=== PATIENT | female | born 1965 | race African-American/Black ===

== ENCOUNTER 2018-04-16 10:00 | Emergency (ER) | payer OTHER ==
[2018-04-16 10:05] VITALS: BMI 34.0
--- NOTE | 2018-04-16 10:22 | PDOC ---
History of Present Illness - General Chief Complaint: Pain, Acute Stated Complaint: ABD PAIN Time Seen by Provider: 04/16/18 10:20 History Source: Patient Exam Limitations: No Limitations - History of Present Illness Initial Comments: 04/16/18 10:21 CHIEF COMPLAINT: Abdominal pain HISTORY OF PRESENT ILLNESS: This is a 53-year-old female with NIDDM, hypertension, VON on CPAP at night, and migraines who presents with about one week of intermittent abdominal pain and diarrhea. She reports that the pain is cramping in character, generalized (sometimes upper and sometimes lower), associated with mild nausea, and worse after eating. She reports that she has "instant" diarrhea after eating. She denies hematochezia. She denies fevers/ chills. She denies recent travel or sick contacts. Of note, she has been on Augmentin for a presumed upper respiratory infection for about 1 week. Smoking: On Chantix, has smoked for approximately 40 years, has now cut down to 3 cigarettes daily Surgical history: Lumpectomy age 39, left ankle surgery this year REVIEW OF SYSTEMS: GENERAL/CONSTITUTIONAL: No fever or chills. No weakness. No weight change. HEAD, EYES, EARS, NOSE AND THROAT: No change in vision. No ear pain or discharge. No sore throat. CARDIOVASCULAR: No chest pain or palpitations. RESPIRATORY: Two weeks of cough productive of yellow sputum, not improving with antibiotics. No wheezing or shortness of breath. GASTROINTESTINAL: See HPI. GENITOURINARY: No dysuria, frequency, or change in urination. MUSCULOSKELETAL: No joint or muscle swelling or pain. No neck or back pain. SKIN: No rash or easy bruising. NEUROLOGIC: No headache, vertigo, loss of consciousness, or loss of sensation. PSYCHIATRIC: No depression or anxiety. ENDOCRINE: No increased thirst. No abnormal weight change. HEMATOLOGIC/LYMPHATIC: No anemia, easy bleeding, or history of blood clots. ALLERGIC/IMMUNOLOGIC: No hives or skin allergy. No latex allergy. PHYSICAL EXAM: GENERAL: The patient is awake, alert, and fully oriented, in no acute distress. HEAD: Normal with no signs of trauma. ENT: Pupils equal, round and reactive to light, extraocular movements intact, sclera anicteric, conjunctiva clear. Neck supple. LUNGS: Clear to auscultation bilaterally. Normal excursion. No respiratory distress or use of accessory muscles. CV: RRR, S1/S2, no MRG. Cap refill < 2 sec. ABDOMEN: Soft, non-distended, non-tender even to deep palpation. EXTREMITIES: Normal range of motion, no edema. NEUROLOGICAL: Normal speech, normal gait. CN II-XII grossly intact. PSYCH: Normal mood, normal affect. SKIN: Warm, dry, normal turgor, no rashes or lesions noted. 04/16/18 10:22 Past History - Past Medical History Allergies/Adverse Reactions: Allergies Allergy/AdvReac Type Severity Reaction Status Date / Time pumpkin Allergy Verified 04/16/18 10:02 Home Medications: Ambulatory Orders Methocarbamol [Robaxin -] 1,000 mg PO TID PRN #30 tablet 12/25/17 COPD: No (sleep apnea) Diabetes: Yes (type 2) HTN: Yes - Suicide/Smoking/Psychosocial Hx Smoking History: Current every day smoker Number of Cigarettes Smoked Daily: 3 Information on smoking cessation initiated: No Hx Alcohol Use: No Drug/Substance Use Hx: No Substance Use Type: None *Physical Exam - Vital Signs Last Vital Signs Temp Pulse Resp BP Pulse Ox 97.7 F 77 18 157/77 100 04/16/18 10:02 04/16/18 10:02 04/16/18 10:02 04/16/18 10:02 04/16/18 10:02 ED Treatment Course - LABORATORY CBC & Chemistry Diagram: 04/16/18 10:42 04/16/18 10:42 Medical Decision Making - Medical Decision Making 04/16/18 10:38 A/P: 53-year-old female with one week of abdominal pain and diarrhea, coinciding with Augmentin use. 1. Labs including CBC, CMP, Mg 2. No indication for imaging at this time with no active pain and no tenderness on exam 3. Send c diff if patient able to provide specimen, if not will encourage her to follow up for this if symptoms continue 4. CXR given productive cough, smoking history 04/16/18 12:15 Labs notable for WBC 12.6. 04/16/18 12:41 CXR reviewed: no acute pathology. Patient feeling well. Suspect antibiotic adverse effect. Scheduled callback for c diff followup. Return precautions reviewed. *DC/Admit/Observation/Transfer Diagnosis at time of Disposition: Abdominal pain Qualifiers: Abdominal location: generalized Qualified Code(s): R10.84 - Generalized abdominal pain Diarrhea Qualifiers: Diarrhea type: unspecified type Qualified Code(s): R19.7 - Diarrhea, unspecified - Discharge Dispostion Disposition: HOME Condition at time of disposition: Stable - Referrals Referrals: Carlos Rooney MD [Primary Care Provider] - 3 days - Patient Instructions Printed Discharge Instructions: Antibiotic-associated Colitis -- C difficile Additional Instructions: -Your chest xray did not show any pneumonia or other abnormalities. -Your white blood cell count was mildly elevated at 12.6, a non-specific indicator of stress or infection. -Your test for c difficile, a specific serious type of serious infectious diarrhea, is pending; expect a call from us to follow up tomorrow. -Follow up with your primary care doctor early next week. Please have him also re-check your blood pressure which was mildly elevated today. -Return for worsening abdominal pain, fevers, or any other concerning symptoms - Post Discharge Activity Forms/Work/School Notes: Back to Work
[2018-04-16 11:00] LABS: EOS % 8.2 % (0-4.5); HEMATOCRIT 43.7 % (32.4-45.2); HEMOGLOBIN 14.3 GM/dL (10.7-15.3); LYMPH % 38.6 % (8-40); MCH 28.1 pg (25.7-33.7); MCHC 32.7 g/dl (32.0-36.0); MEAN PLT VOLUME 7.4 fl (7.5-11.1); MONO % 5.8 % (3.8-10.2); NEUT % 46.4 % (42.8-82.8); PLATELET COUNT 362 K/MM3 (134-434); RBC 5.08 M/mm3 (3.60-5.2); RDW 14.8 % (11.6-15.6); WHITE BLOOD COUNT 12.6 K/mm3 (4.0-10.0)
[2018-04-16 11:32] LABS: ALBUMIN 3.6 g/dl (3.4-5.0); ALK PHOS 102 U/L (45-117); ANION GAP 10 MMOL/L (8-16); BILIRUBIN,TOTAL 0.8 mg/dL (0.2-1); BLOOD UREA NITROGEN 12 mg/dL (7-18); CALCIUM 8.7 mg/dL (8.5-10.1); CHLORIDE 110 mmol/L (98-107); CO2 22 mmol/L (21-32); CREATININE 0.7 mg/dL (0.55-1.3); GLUCOSE,RANDOM 103 mg/dL (74-106); MAGNESIUM 1.9 mg/dL (1.8-2.4); POTASSIUM 4.2 mmol/L (3.5-5.1); SGOT/AST 14 U/L (15-37); SGPT/ALT 19 U/L (13-61); SODIUM 143 mmol/L (136-145); TOT PROT 6.9 g/dl (6.4-8.2)
[2018-04-16 13:20] VITALS: BP 142/78; PULSE 74; TEMP 98.6
== END 2018-04-16 13:21 | disposition home or self-care (01) ==
LOC: JER 10:00
DX: R10.84 Generalized abdominal pain (principal); R19.7 Diarrhea, unspecified; I10 Essential (primary) hypertension; E11.9 Type 2 diabetes mellitus without complications; Z79.84 Long term (current) use of oral hypoglycemic drugs; G43.909 Migraine, unspecified, not intractable, without status migrainosus; G47.33 Obstructive sleep apnea (adult) (pediatric); F17.210 Nicotine dependence, cigarettes, uncomplicated
CPT/HCPCS: 36415; 71046-TC-FY; 80053; 83735; 85025; 87324; 87449; 99282-25

== ENCOUNTER 2020-01-06 05:43 | Day surgery (SDC) | payer OTHER ==
[2020-01-06 06:58] VITALS: BMI 33.0
[2020-01-06] MEDS ORDERED: MIDAZOLAM HCL 2 MG/2 ML SINGLE DOSE VIAL ONE ×3 (07:00→07:06)
[2020-01-06] MEDS ORDERED: ROPIVACAINE HCL 0.5% 30ML VIAL ONE (07:00)
[2020-01-06] MEDS ORDERED: ceFAZolin SODIUM 1 GM VIAL ONE (07:06)
[2020-01-06] MEDS ORDERED: LIDOCAINE HCL/PF 2% SDV 5ML VIAL ONE (07:06)
[2020-01-06] MEDS ORDERED: ONDANSETRON 4 MG/2 ML VIAL ONE (07:06)
[2020-01-06] MEDS ORDERED: PROPOFOL 20 ML ONE ×2 (07:06)
[2020-01-06] MEDS ORDERED: DEXAMETHASONE SOD PHOSPHATE 4 MG/1 ML VIAL ONE (07:06)
[2020-01-06] MEDS ORDERED: KETOROLAC TROMETHAMINE 30 MG/1 ML VIAL ONE (07:06)
[2020-01-06] MEDS ORDERED: SODIUM CHLORIDE 0.9% P/F 10 ML VIAL IJ ONE (07:06)
[2020-01-06] MEDS ORDERED: EPINEPHrine 1:1,000 1 MG/1 ML - 30ML VIAL (INJECTION) ONE (07:19)
[2020-01-06] MEDS ORDERED: oxyCODONE HCL 5 MG TABLET PO PRN ×2 (07:56)
[2020-01-06] MEDS ORDERED: ONDANSETRON 4 MG/2 ML VIAL IVPUSH PRN (07:56)
--- NOTE | 2020-01-06 07:59 | HP ---
[facility]ellite [facility] - Chief Complaint Chief Complaint: left shoulder pain - Past Medical History Allergies/Adverse Reactions: Allergies Allergy/AdvReac Type Severity Reaction Status Date / Time pumpkin Allergy Severe Itching Verified 12/29/19 11:52 No Known Drug Allergies Allergy Verified 12/29/19 11:52 ...LMP: 06/23/09 - Current Medications Current Medications: Home Medications Medication Instructions Recorded Amlodipine Besylate 5 mg PO DAILY 12/29/19 Atorvastatin Ca [Lipitor] 20 mg PO HS 12/29/19 Losartan Potassium 50 mg PO DAILY 12/29/19 Metformin HCl [Glucophage] 500 mg PO BID 12/29/19 Riboflavin (Vitamin B2) [Vitamin 1 tab PO DAILY 12/29/19 B-2] Hydrocodone/Acetaminophen 1 each PO Q6H #30 tablet MDD 4 01/06/20 [Hydrocodone-Acetamin 5-325 mg] Satellite Physical Exam - Physical Examination Vital Signs: Vital Signs Period Temp Pulse Resp BP Sys/Carrillo Pulse Ox Last 24 Hr 98.0 F 82 18 131/86 100 General Appearance: Well Nourished, Well Developed, Alert & Oriented x3 ENT: Clear Lung: Normal air movement Extremities: Other (left shoulder- + ttp, decr rom, + neer, + ramos, +obriens, nvi) Neurological: Intact, Alert, Oriented Satellite Impression/Plan - Impression/Plan Impression: left shoulder impingement, labral tear Operative Procedure: left shoulder arthroscopy with SAD, possible labral reapir Date to be Performed: 01/06/20
[2020-01-06] MEDS ORDERED: LACTATED RINGERS SOLUTION 1,000 ML IV SCH (08:00)
--- NOTE | 2020-01-06 09:22 | OP ---
Operative Note - Note: Operative Date: 01/06/20 Pre-Operative Diagnosis: left shoulder impingement syndrome Operation: left shoulder arthroscopy, subacromial decompression Post-Operative Diagnosis: Same as Pre-op Surgeon: Valeriano Waddell Locomotive Crane Engineer: Konrad Collins Anesthesiologist/SHIRT BANDER: Aminah Turner Anesthesia: General, Local Specimens Removed: shavings Estimated Blood Loss (mls): 10 Drains, Volume Out (mls): 0 Blood Volume Replaced (mls): 0 Fluid Volume Replaced (mls): 700 Operative Report Dictated: Yes
[2020-01-06 12:33] VITALS: BP 121/74; PULSE 75; TEMP 98
--- NOTE | 2020-01-06 16:56 | OP ---
DATE OF OPERATION: 01/06/2020 PREOPERATIVE DIAGNOSIS: Left shoulder impingement syndrome. POSTOPERATIVE DIAGNOSIS: Left shoulder impingement syndrome. PROCEDURE: Left shoulder arthroscopy and subacromial decompression. SURGEON: Khushi Maria MD DEVELOPMENT LEAD: ALBERTA Coronado ANESTHESIOLOGIST: Aminah Turner MD ANESTHESIA: Left interscalene block with LMA anesthesia. DRAINS: None. COMPLICATIONS: None. BLOOD LOSS: None. BLOOD GIVEN: None. FLUID REPLACEMENT: Plasmalyte 700 mL. INDICATION: This patient is a 54-year-old female with a preoperative diagnosis of left shoulder impingement syndrome. After understanding potential risks, complications, alternatives, and benefits of surgery versus nonsurgical treatment, patient elected to undergo this procedure. DESCRIPTION OF PROCEDURE: Patient was brought to the operating room, peripheral IV placed. IV sedation given. Left interscalene block was performed. LMA anesthesia was induced. She was placed in the beach chair position with ample padding throughout. The left upper extremity was prepped and draped in sterile fashion. The bony landmarks were marked out with a marking pen. I did a manipulation under anesthesia; however, there was really no stiffness or tightness. She had full range of motion without any blocked motion. A posterior portal was established. A diagnostic glenohumeral arthroscopy was performed. From inside the joint there was a small undersurface tear comprising perhaps 5% of the undersurface of the rotator cuff, otherwise everything else looked good. There was no glenohumeral arthritis. The biceps tendon, the labrum all look good, with no intraarticular pathology. Next, our attention was turned to the subacromial space. A lateral portal was established with a spinal needle under direct visualization, and then using a No. 15 scalpel blade, the green cannula was introduced into the subacromial space. ArthroCare wand was used to do a soft tissue bursectomy. There was an extensive amount of bursitis and soft tissue inflammation. I did extensive debridement/soft tissue bursectomy. This revealed a very large anterior subacromial spur that came way down. There was no room whatsoever. The 5.5-mm oval bur was used to do a bony decompression. It was fine tuned in reverse and then with the straight shaver. The arm was put through a full range of motion. There were no points of compression, and the rotator cuff looked fine. The shaver was reintroduced into the joint to remove all bony debris, remaining soft tissue, bursal tissue. I exposed the distal clavicle. It looked good. I did not need to do a distal clavicle excision. The area was copiously irrigated and washed out. All instrumentation and saline removed. The arthroscopy portals were closed with 3-0 nylon sutures, then covered with Aquacel dressing. The arm was put in a sling. Patient was extubated. There were no complications during the case. Total surgical time was about 40 minutes. The patient was brought to the ambulatory recovery room in stable condition. KHUSHI MARIA M.D. [id number]
--- NOTE | 2020-03-16 16:21 | OP ---
DATE OF OPERATION: 01/06/2020 ADDENDUMDuring the arthroscopy and decompression portion of this procedure I did an extensive soft tissue debridement of both the subacromial and subdeltoid bursa as well as the anterior and posterior areas of bursitis. Therefore, we did all 4 sections, medial, lateral, anterior and posterior comprising a full soft tissue debridement and soft tissue bursectomy. KHUSHI MARIA M.D. [id number]
== END 2020-01-06 11:00 | disposition home or self-care (01) ==
LOC: EDBD → FASU 05:43 → EDBD 08:00 → FASU 11:00
PROVIDERS: ATTEND Orthopaedic Surgery
PROC: 0RBK4ZZ Excision of Left Shoulder Joint, Percutaneous Endoscopic Approach (ICD-10-PCS; principal; 2020-01-06 08:46)
DX: M75.42 Impingement syndrome of left shoulder (principal); M75.52 Bursitis of left shoulder; M75.112 Incomplete rotator cuff tear or rupture of left shoulder, not specified as traumatic
CPT/HCPCS: 82962; 94760

== ENCOUNTER 2021-07-19 04:07 | Day surgery (SDC) | payer OTHER ==
[2021-07-18 08:40] VITALS: BMI 35.9
[2021-07-19] MEDS ORDERED: LIDOCAINE HCL/PF 2% SDV 5ML VIAL ONE (12:36)
[2021-07-19] MEDS ORDERED: fentaNYL CITRATE 250 MCG/5 ML VIAL ONE (12:36)
[2021-07-19] MEDS ORDERED: MIDAZOLAM HCL 2 MG/2 ML SINGLE DOSE VIAL ONE (12:37)
[2021-07-19] MEDS ORDERED: PROPOFOL 20 ML ONE ×6 (12:37→14:25)
[2021-07-19] MEDS ORDERED: ROCURONIUM BROMIDE 100 MG/10 ML VIAL ONE (12:41)
[2021-07-19] MEDS ORDERED: OXYMETAZOLINE 0.05% NASAL SOLUTION 15 ML BOTTLE NS PRN (12:58)
[2021-07-19] MEDS ORDERED: OXYMETAZOLINE 0.05% NASAL SOLUTION 15 ML BOTTLE NS ONE (13:05)
[2021-07-19] MEDS ORDERED: NEOSTIGMINE METHYLSULFATE 0.5 MG/ML - 10 ML MDV ONE (13:32)
[2021-07-19] MEDS ORDERED: oxyCODONE HCL 5 MG TABLET PO PRN ×2 (14:22)
[2021-07-19] MEDS ORDERED: ONDANSETRON 4 MG/2 ML VIAL IVPUSH PRN (14:22)
[2021-07-19] MEDS ORDERED: LABETALOL HCL 5 MG/1 ML (100MG/20 ML VIAL) ONE (14:26)
[2021-07-19] MEDS ORDERED: LACTATED RINGERS SOLUTION 1,000 ML IV SCH (14:30)
[2021-07-19] MEDS ORDERED: ACETAMINOPHEN INJECTION 100 ML IVPB ONE (14:38)
[2021-07-19] MEDS ORDERED: oxyCODONE HCL 5 MG TABLET ONE (16:26)
[2021-07-19] MEDS ORDERED: oxyCODONE HCL 5 MG TABLET PO ONE (16:28)
[2021-07-19 17:44] VITALS: BP 137/75; PULSE 91; TEMP 97.8
== END 2021-07-19 17:45 | disposition home or self-care (01) ==
LOC: JASU-SURG 04:07
PROVIDERS: ATTEND Otolaryngology
PROC: 0CBV8ZZ Excision of Left Vocal Cord, Via Natural or Artificial Opening Endoscopic (ICD-10-PCS; 2021-07-19)
PROC: 0CJS8ZZ Inspection of Larynx, Via Natural or Artificial Opening Endoscopic (ICD-10-PCS; principal; 2021-07-19 10:00)
DX: J38.1 Polyp of vocal cord and larynx (principal); G47.33 Obstructive sleep apnea (adult) (pediatric); E11.9 Type 2 diabetes mellitus without complications; Z79.84 Long term (current) use of oral hypoglycemic drugs
CPT/HCPCS: 82962; 88305-TC; 94760; J0131

== ENCOUNTER 2022-06-05 17:01 | Emergency (ER) | payer OTHER ==
[2022-06-05 17:13] VITALS: BP 152/88; PULSE 100; RESP 16; TEMP 98.8; BMI 33.1
[2022-06-05] MEDS ORDERED: METHOCARBAMOL 500 MG TABLET PO ONE (17:30)
[2022-06-05] MEDS ORDERED: KETOROLAC TROMETHAMINE 30 MG/1 ML VIAL IM ONE (17:30)
[2022-06-05] MEDS ORDERED: KETOROLAC TROMETHAMINE 30 MG/1 ML VIAL ONE (17:40)
[2022-06-05] MEDS ORDERED: METHOCARBAMOL 500 MG TABLET ONE (17:40)
[2022-06-05] MEDS ORDERED: LIDOCAINE 5% TOPICAL PATCH TP ONE (18:30)
[2022-06-05] MEDS ORDERED: oxyCODONE HCL 5 MG TABLET PO ONE (18:30)
[2022-06-05] MEDS ORDERED: oxyCODONE HCL 5 MG TABLET ONE (18:54)
[2022-06-05] MEDS ORDERED: LIDOCAINE 5% TOPICAL PATCH ONE (18:55)
[2022-06-05] MEDS ORDERED: LIDOCAINE PATCH REMOVAL MC SCH (22:00)
== END 2022-06-05 19:56 | disposition home or self-care (01) ==
LOC: FER 17:01
DX: R68.84 Jaw pain (principal)
CPT/HCPCS: 93005; 99283-25

== ENCOUNTER 2022-07-11 04:07 | Day surgery (SDC) | payer OTHER ==
[2022-07-09 09:54] VITALS: BMI 34.2
[2022-07-11] MEDS ORDERED: ceFAZolin SODIUM 1 GM VIAL IVPB ONE ×2 (08:32→09:20)
[2022-07-11] MEDS ORDERED: BUPIVACAINE HCL/PF 0.5% (5MG/ML) 10 ML VIAL IJ ONE ×2 (08:33→09:16)
[2022-07-11] MEDS ORDERED: LIDOCAINE HCL 2% (50ML VIAL) NR ONE ×3 (08:33→09:16)
[2022-07-11] MEDS ORDERED: DEXAMETHASONE SOD PHOSPHATE 4 MG/1 ML VIAL IVPUSH ONE ×2 (08:34→10:34)
[2022-07-11] MEDS ORDERED: LIDOCAINE HCL 2% (20ML MULTI-DOSE VIAL) ONE (08:40)
[2022-07-11] MEDS ORDERED: BUPIVACAINE HCL/PF 0.5% (5MG/ML) 10 ML VIAL ONE (08:40)
[2022-07-11] MEDS ORDERED: DEXAMETHASONE SOD PHOSPHATE 4 MG/1 ML VIAL ONE (08:40)
[2022-07-11] MEDS ORDERED: MIDAZOLAM HCL 2 MG/2 ML SINGLE DOSE VIAL ONE (08:45)
[2022-07-11] MEDS ORDERED: PROPOFOL 20 ML ONE (09:25)
[2022-07-11 10:52] VITALS: RESP 20
[2022-07-11 13:07] VITALS: BP 119/65; PULSE 72; TEMP 97.1
== END 2022-07-11 14:44 | disposition home or self-care (01) ==
LOC: JASU-SURG 04:07
PROVIDERS: ATTEND Podiatrist
PROC: 0QBP0ZZ Excision of Left Metatarsal, Open Approach (ICD-10-PCS; principal; 2022-07-11 09:00)
PROC: 0QSP04Z Reposition Left Metatarsal with Internal Fixation Device, Open Approach (ICD-10-PCS; 2022-07-11 09:00)
DX: M20.12 Hallux valgus (acquired), left foot (principal)
CPT/HCPCS: 73630-TC-LT; 88305-TC; 88311-TC

== ENCOUNTER 2023-03-25 13:35 | Emergency (ER) | payer OTHER ==
[2023-03-25 13:50] VITALS: BP 138/90; PULSE 88; RESP 18; TEMP 98.9; BMI 42.5
== END 2023-03-25 15:43 | disposition home or self-care (01) ==
LOC: FER 13:35
DX: R05.9 Cough, unspecified (principal); R09.81 Nasal congestion; R07.1 Chest pain on breathing
CPT/HCPCS: 71046-TC-FY; 99283-25

== ENCOUNTER 2023-12-06 11:46 | Emergency (ER) | payer OTHER ==
[2023-12-06 11:54] VITALS: BP 136/78; PULSE 94; RESP 18; TEMP 98.9; BMI 34.0
== END 2023-12-06 13:42 | disposition home or self-care (01) ==
LOC: FER 11:46
DX: S93.401A Sprain of unspecified ligament of right ankle, initial encounter (principal); W11.XXXA Fall on and from ladder, initial encounter
CPT/HCPCS: 73562-TC-RT-FY; 73610-TC-RT-FY; 73630-TC-RT-FY; 99284-25